=== PATIENT | female | born 1985 | race Caucasian/White ===

== ENCOUNTER 2017-04-17 18:02 | Emergency (ER) | payer MEDICAID ==
[~2017-04-17] VITALS: Ht 172.7 cm; Wt 72.0 kg
[~2017-04-17 18:02] MED LIST: DOCU100C8 PO; FERR325T23 PO; IBUP-1222 PO; OXYC-302 PO; PREN1TAB56 PO
[2017-04-17 18:36] LABS: HEMATOCRIT 36.6 % (34.6-47.8); HEMOGLOBIN 11.8 g/dL (11.7-16.4); WHITE BLOOD COUNT 10.1 x10^3/uL (3.4-10)
[2017-04-17 18:48] LABS: BLOOD UREA NITROGEN 16 mg/dL (7-18)
[2017-04-17 18:52] LABS: ASPARTATE AMINO TRANSFERASE 15 U/L (15-37)
[2017-04-17 19:33] VITALS: BP 123/79
== END 2017-04-17 19:36 | disposition home or self-care (01) ==
LOC: ED 19:00
DX: N93.8 Other specified abnormal uterine and vaginal bleeding (principal); O72.1 Other immediate postpartum hemorrhage; Z37.0 Single live birth; Z88.0 Allergy status to penicillin
CPT/HCPCS: 36415; 80053; 85025; 99284

== ENCOUNTER 2018-04-11 19:46 | Emergency (ER) | payer MEDICAID ==
[~2018-04-11] VITALS: Ht 172.7 cm; Wt 80.0 kg
[~2018-04-11 19:46] MED LIST changes: +DOCU100C33 PO; -DOCU100C8 PO
[2018-04-11] MEDS ORDERED: IBUPROFEN 200 MG TABLET ONE (20:03)
[2018-04-11] MEDS ORDERED: SERT50TA PO (20:26)
[2018-04-11] MEDS ORDERED: IBUPROFEN 200 MG TABLET PO ONE (20:30)
[2018-04-11] MEDS ORDERED: SODIUM CHLORIDE FLUSH 10ML SYR IVF ONE (20:30)
[2018-04-11] MEDS ORDERED: SODIUM CHLORIDE 0.9% 1,000ML IVBOLUS ONE ×2 (20:30→21:00)
[2018-04-11 20:35] LABS: BASOPHILS # (AUTO) 0.03 x10^3/uL (0-0.1); BASOPHILS % (AUTO) 1 % (0-1); EOSINOPHILS # (AUTO) 0.06 x10^3/uL (0-0.4); EOSINOPHILS % (AUTO) 2 % (1-7); LYMPHOCYTES # (AUTO) 0.77 x10^3/uL (1-3.4); LYMPHOCYTES % (AUTO) 19 % (22-44); MD NO; MEAN CORPUSCULAR HEMOGLOBIN 30.4 pg (27.0-34.8); MEAN CORPUSCULAR HGB CONC 34.4 g/dL (32.4-35.8); MEAN CORPUSCULAR VOLUME 88.4 fL (80-100); MEAN PLATELET VOLUME 8.3 fL (7.4-10.4); MONOCYTES # (AUTO) 0.32 x10^3/uL (0.2-0.8); MONOCYTES % (AUTO) 8 % (2-9); NEUTROPHILS % (AUTO) 71 % (42-75); PLATELET COUNT 172 x10^3/uL (130-400); RED BLOOD COUNT 5.02 x10^6/uL (3.82-5.3); RED CELL DISTRIBUTION WIDTH 13.1 % (9.6-15.2)
[2018-04-11 20:39] LABS: MICROSCOPIC AUTO
[2018-04-11 20:41] LABS: ALANINE AMINOTRANSFERASE 43 U/L (12-78); ANION GAP 7 mmol/L (5-15); CALCIUM 8.9 mg/dL (8.5-10.1); CHLORIDE 104 mmol/L (98-107)
[2018-04-11 20:42] LABS: CULTURE INDICATED? NO
[2018-04-11 20:46] LABS: ALKALINE PHOSPHATASE 96 U/L (45-117); BILIRUBIN,TOTAL 0.8 mg/dL (0.2-1.0); CREATININE 1.03 mg/dL (0.55-1.02); TOTAL PROTEIN 7.9 g/dL (6.4-8.2)
[2018-04-11] MEDS ORDERED: ACETAMINOPHEN 500 MG TABLET ONE (20:46)
[2018-04-11] MEDS ORDERED: DEXAMETHASONE 4 MG/ML, 5ML ONE (20:49)
[2018-04-11] MEDS ORDERED: ACETAMINOPHEN 500 MG TABLET PO ONE (21:00)
[2018-04-11] MEDS ORDERED: DEXAMETHASONE 4 MG/ML, 1ML IVPush ONE (21:00)
[2018-04-11 22:08] VITALS: BP 143/88
== END 2018-04-11 22:46 | disposition home or self-care (01) ==
LOC: ED 22:40
DX: J02.8 Acute pharyngitis due to other specified organisms (principal); B34.9 Viral infection, unspecified; B97.89 Other viral agents as the cause of diseases classified elsewhere
CPT/HCPCS: 36415; 71045; 80053; 81001; 83605; 84145; 84703; 85025; 86308; 87040; 87081; 87880; 93005; 96361; 96374; 99285; J1100; J7030

== ENCOUNTER 2018-04-23 14:55 | Emergency (ER) | payer MEDICAID ==
[~2018-04-23] VITALS: Ht 172.7 cm; Wt 77.8 kg
[~2018-04-23 14:55] MED LIST changes: +SERT50TA PO
[2018-04-23] MEDS ORDERED: DEXAMETHASONE 4 MG/ML, 1ML IV ONE (15:30)
[2018-04-23] MEDS ORDERED: KETOROLAC 30 MG/1 ML IVPush ONE (15:30)
[2018-04-23] MEDS ORDERED: SODIUM CHLORIDE 0.9% 1,000ML IVBOLUS ONE (15:30)
[2018-04-23 16:04] LABS: BASOPHILS # (AUTO) 0.06 x10^3/uL (0-0.1); BASOPHILS % (AUTO) 1 % (0-1); EOSINOPHILS # (AUTO) 0.12 x10^3/uL (0-0.4); EOSINOPHILS % (AUTO) 1 % (1-7); LYMPHOCYTES # (AUTO) 4.54 x10^3/uL (1-3.4); LYMPHOCYTES % (AUTO) 44 % (22-44); MD NO; MEAN CORPUSCULAR HEMOGLOBIN 29.2 pg (27.0-34.8); MEAN CORPUSCULAR HGB CONC 33.7 g/dL (32.4-35.8); MEAN CORPUSCULAR VOLUME 86.7 fL (80-100); MEAN PLATELET VOLUME 8.1 fL (7.4-10.4); MONOCYTES # (AUTO) 0.81 x10^3/uL (0.2-0.8); MONOCYTES % (AUTO) 8 % (2-9); NEUTROPHILS % (AUTO) 47 % (42-75); PLATELET COUNT 230 x10^3/uL (130-400); RED BLOOD COUNT 4.88 x10^6/uL (3.82-5.3); RED CELL DISTRIBUTION WIDTH 13.2 % (9.6-15.2)
[2018-04-23] MEDS ORDERED: KETOROLAC 30 MG/1 ML ONE (16:06)
[2018-04-23] MEDS ORDERED: DEXAMETHASONE 4 MG/ML, 1ML ONE (16:06)
[2018-04-23 16:08] LABS: ALANINE AMINOTRANSFERASE 160 U/L (12-78); ALBUMIN 3.6 g/dL (3.4-5.0); ANION GAP 5 mmol/L (5-15); CALCIUM 8.6 mg/dL (8.5-10.1); CHLORIDE 108 mmol/L (98-107); CREATININE 0.83 mg/dL (0.55-1.02)
[2018-04-23 16:12] LABS: ALKALINE PHOSPHATASE 110 U/L (45-117); BILIRUBIN,TOTAL 0.8 mg/dL (0.2-1.0); TOTAL PROTEIN 7.3 g/dL (6.4-8.2)
[2018-04-23 17:26] VITALS: BP 126/74
== END 2018-04-23 17:28 | disposition home or self-care (01) ==
LOC: ED 17:15
DX: J02.8 Acute pharyngitis due to other specified organisms (principal); B97.89 Other viral agents as the cause of diseases classified elsewhere; Z88.0 Allergy status to penicillin
CPT/HCPCS: 36415; 80053; 84703; 85025; 86308; 87081; 87880; 96374; 96375; 99284; J1100; J1885; J7030